=== PATIENT | male | born 1955 | race Caucasian/White ===

== ENCOUNTER → 2018-02-17 08:13 | Outpatient (CLI) | payer OTHER, SELFPAY ==
[2018-02-17 10:14] LABS: Anion Gap 7 (5-15); BUN 26 mg/dL (7-18); BUN/Creat Ratio 23.2 RATIO (10-20); Calcium,Total 9.4 mg/dL (8.5-10.1); Chloride 108 mmol/L (98-107); Cholesterol 116 mg/dL (200); Creatinine, Serum 1.12 mg/dL (0.70-1.30); EST Glomerular Filtration Rate 70 mL/min (>60); Est Glom Filt Rate - Afr Amer 85 mL/min (>60); Glucose 74 mg/dL (74-106); High Density Lipoprotein 40 mg/dL; Potassium 3.8 mmol/L (3.5-5.1); Sodium Level 141 mmol/L (136-145); Thyroid Stim Hormone (TSH) 2.45 uIU/mL (0.358-3.74); Triglycerides 93 mg/dL; Very Low Density Lipoprotein 19 mg/dL (5-40); Vitamin D,25 Hydroxy 22.5 ng/mL (29.95-100.01)
== END ==
PROVIDERS: Family Provider Family Medicine; PCP Family Medicine; Referring Provider Family Medicine; Visit Provider Family Medicine
DX: Z00.00 Encounter for general adult medical examination without abnormal findings (principal)
CPT/HCPCS: 36415; 80048; 80061; 82306; 84153; 84443; G0103

== ENCOUNTER 2018-06-05 08:07 | Day surgery (SDC) | payer SELFPAY ==
[2018-06-05] VITALS (7 sets, daily range): BP systolic 104–137; BP diastolic 74–97; PULSE 57–63; RESP 14–16; TEMP 36.1–36.6; O2SAT 97–100; BMI 26.9
--- NOTE | 2018-06-05 08:42 | H&P.OPEN ---
History of Present Illness Date of Admission: 06/05/18 The patient is a 63 year old M patient here for surveillance colonoscopy. Patient's last colonoscopy was 5 years ago. He would like close surveillance. He had nothing on his last colonoscopy. He denies any abdominal pain or blood in his stool. He has no family history of colon cancer. Past Medical/Surgical History - Planned Operation Planned Operative Procedure/s: cscope open access Date of Operative Procedure: 05/22/18 Permit Signed: No S.O.S: No Is This Patient Having a Total Joint: No - Previous Hospitalizations/Surgeries HX Hospitalizations: No HX of Surgeries: left tkr. colonoscopy. heart cath 4 yrs ago. carpal tunnel left Any Problems With Anesthesia: No You/Your Family Experience Fever (Hyperthermia) With Anes: No Cholinesterase deficiency: No - Cardiovascular Hx Chest Pain within Last 2 months: No Hx of Irregular Heartbeat and/or Afib: No - cardiomyopathy/follows with dr tirado 05/2018 Hx Heart Attack: No Hx Congestive Heart Failure: No Hx Rheumatic Fever: No Hx Hypertension: Yes - controlled with med Hx Internal Defibrillator: No Hx Pacemaker: No Hx Cardiac Catheterization: Yes - 2014 What facility was last heart cath performed: [facility] Date of last Heart Cath: 2014 Hx Cardiac Surgery/Stents/Etc.: No Hx Stress Test: Yes - 2014 [facility] HX Edema: No Hx Pain in Legs when Walking/Leg Cramps: No - Respiratory Chronic Cough: No HX of Shortness of Breath: No Hoarseness: No Hx Chronic Obstructive Pulmonary Disease (COPD): No Hx Asthma: No Hx Emphysema: No Hx Sleep Apnea: No Hx Oxygen Use at Home: No Hx Respiratory Tract Infection/Cold (presently): No Do You Snore Loudly (louder than talking or can be heard): No Do You Often Feel Tired/ Fatigued/ Sleepy Dring Daytime?: No Has Anyone Observed You Stop Breathing During Sleep?: No Result (for STOP score): Negative Hx Smoking: No Smoking Status: Never smoker - Gastrointestinal Hx Gastroesophageal Reflux: Yes Controlled With Meds: Yes Hx Gastrointestinal Disorders: No Hx Gastrointestinal Bleed: No Hx Ulcer: No Hx Hiatal Hernia: No Difficulty Chewing/Swallowing: No Recent Onset of Swallowing Problems: No Special diet followed at home: No Hx Unplanned Weight Loss of 20#: No HX Unplanned Weight Gain of 20#: No - Neurological Hx Seizures: No HX Syncope/Blackout Spells/Unconsciousness: No Hx CVA/Stroke: No Hx Transient Ischemic Attacks (TIA): No Hx Multiple Sclerosis: No Hx Parkinson's Disease: No Hx Head/Neck Injury: No Hx Headaches: No Hx Back Injury/Pain: No Recent Onset of Speech Difficulty: No Restless Legs: No Does patient have nerve stimulator: No Patient instructed to have device shut off: No Rep notified?: No - Blood Disorder Hx Leukemia: No Bleeding Tendencies: No Hx Deep Vein Thrombosis: No Hx High Cholesterol: Yes - on med Blood Transmitted Disease: No Hx Hepatitis: No Hx Cirrhosis: No Hx Anemia: No Hx Blood Disorders: No - Genitourinary Hx Renal Disease: No - Musculoskeletal Hx Arthritis: Yes Hx Rheumatoid Arthritis: No Hx Gout: No Recent Onset of an Orthopedic Problem: No - Endocrine Hx Diabetes: No Thyroid Disease: No Hx Steroid Therapy: No - Psycho/Social Hx Substance Use: No Hx Alcohol Use: No Hx Anxiety: No Hx Depression: No Mental Illness: No Hx Dementia: No - Miscellaneous Hx Cancer: No Recent Exposure to Contagious Disease: No Active MRSA: No Hx of C-Diff: No Any Loose Teeth: No Allergies No Known Allergies Allergy (Verified 05/18/18 11:57) - Discharge Is Pt Admitted From a [facility], or a Retirement: No Who Could Help: family After D/C, Where Do you Plan to Go: Return Home - From the PAT History Number of Risk Factors: 1 - Physical Exam General: Alert, Oriented x3 Lungs: Normal air movement Cardiovascular: Regular rate, Regular Rhythm Abdomen: Soft, Non Tender, Non-Distended Vital Signs Temp Pulse Resp BP Pulse Ox 98 F 57 L 16 137/77 H 100 06/05/18 08:34 06/05/18 08:34 06/05/18 08:34 06/05/18 08:34 06/05/18 08:34 Oxygen Delivery Method Room Air Weight: 166 lb 10.711 oz Body Mass Index (BMI) 26.9 Assessment/Plan 63-year-old male for screening colonoscopy I explained endoscopy in detail to the patient. I explained the risks including but not limited to stroke or heart attack with anesthesia, perforation of the GI tract, bleeding, infection. I explained that any of these could necessitate further emergency surgery. The patient understands and all questions were answered sufficiently. The patient wishes to proceed with procedure. Aldo Craig MD Pager: [facility] [address] [place] [address] [address] [place] [address] Office: Surgery Risks - Colonoscopy Risks Include but are not Limited To: Risks include but are not limited to: Bleeding, perforation requiring further surgery, inability to complete colonoscopy requiring barium enema.
--- NOTE | 2018-06-05 09:41 | OP.ENDO_ITS ---
Patient Name: Derrick Gutierrez Procedure Date: 06/05/2018 9:13 AM Date of : 1955 Age: 63 Procedure: Colonoscopy Indications: Screening for colorectal malignant neoplasm Providers: Aldo Craig MD Referring MD: Aldo Craig MD Medicines: Monitored Anesthesia Care Patient Profile: This is a 63 year old male. Refer to note in patient chart for documentation of history and physical. Last Colonoscopy: 5 years ago. Complications: No immediate complications. Estimated blood loss: None. Procedure: Pre-Anesthesia Assessment: - Prior to the procedure, a History and Physical was performed, and patient medications and allergies were reviewed. The patient's tolerance of previous anesthesia was also reviewed. The risks and benefits of the procedure and the sedation options and risks were discussed with the patient. All questions were answered, and informed consent was obtained. Prior Anticoagulants: The patient has taken no previous anticoagulant or antiplatelet agents. After reviewing the risks and benefits, the patient was deemed in satisfactory condition to undergo the procedure. After I obtained informed consent, the scope was passed under direct vision. Throughout the procedure, the patient's blood pressure, pulse, and oxygen saturations were monitored continuously. The Colonoscope was introduced through the anus and advanced to the cecum, identified by appendiceal orifice and ileocecal valve. The colonoscopy was performed without difficulty. The patient tolerated the procedure well. The quality of the bowel preparation was good. Scope In: 9:24:17 AM Scope Withdrawal Time 0 hours 6 minutes 11 seconds Scope Out: 9:34:51 AM Total Procedure Duration Time 0 hours 10 minutes 34 seconds Findings: The entire examined colon appeared normal on direct and retroflexion views. Impression: - The entire examined colon is normal on direct and retroflexion views. - No specimens collected. Recommendation: - Discharge patient to home. - Resume previous diet. - Continue present medications. - Repeat colonoscopy in 10 years for screening purposes. Procedure Code(s): --- Professional --- 39960, PT, Colonoscopy, flexible; diagnostic, including collection of specimen(s) by brushing or washing, when performed (separate procedure) Diagnosis Code(s): --- Professional --- Z12.11, Encounter for screening for malignant neoplasm of colon CPT copyright 2017 [employer]. All rights reserved. The codes documented in this report are preliminary and upon science tutor review may be revised to meet current compliance requirements. Aldo Craig MD 06/05/2018 9:40:45 AM This report has been signed electronically. Number of Addenda: 0 Note Initiated On: 06/05/2018 9:13 AM
== END 2018-06-05 10:22 | disposition home or self-care (01) ==
LOC: EN 08:08 → AC 08:09
PROVIDERS: Family Provider Family Medicine; PCP Family Medicine; Referring Provider Surgery; Visit Provider Surgery
PROC: 0DJD8ZZ Inspection of Lower Intestinal Tract, Via Natural or Artificial Opening Endoscopic (ICD-10-PCS; CPT 45378; principal; 2018-06-05 09:25)
DX: Z12.11 Encounter for screening for malignant neoplasm of colon (principal); K21.9 Gastro-esophageal reflux disease without esophagitis; I10 Essential (primary) hypertension
CPT/HCPCS: 45378; J7120; J2405

== ENCOUNTER → 2019-03-24 14:48 | Outpatient (CLI) | payer SELFPAY, OTHER ==
[2019-03-04 15:50] VITALS: BMI 27.7
--- NOTE | 2019-03-24 14:51 | ECHOCS_ITS ---
Reason For Study: CARDIOMYOPATHY, R/O LV THROMBUS Procedure This was a 2D Doppler, Color Flow transthoracic echocardiogram. Contrast injection was performed. Due to history of previous LV thrombus. Exam performed in department. Left Ventricle Normal LV size. Left ventricular systolic function is lower limits of normal. The estimated ejection fraction is 50 %. No evidence for diastolic dysfunction. No regional wall motion abnormalities noted. Right Ventricle Normal RV size. Normal systolic function. Atria The left atrium is mildly enlarged. Normal right atrium. No doppler evidence for ASD. Mitral Valve There is no mitral annular calcification. Equivocal mitral valve prolapse. Mild (1+) mitral valve insufficiency. Tricuspid Valve Normal tricuspid valve. Mild tricuspid valve insufficiency. Right ventricular systolic pressure estimated to be 26 mmHg. Aortic Valve Trisinus/trileaflet aortic valve. Mild focal aortic valve calcification. Pulmonic Valve The pulmonic valve is not well visualized. Trivial pulmonic valve insufficiency. Great Vessels Normal sized aortic root. Pericardium/Pleural No pericardial effusion. Medication 22 gauge I.V. with prn adaptor inserted into right arm. Diluted definity 2.5ml given slow IV push to enhance endocardial definition. MMode/2D Measurements & Calculations LVIDd: 5.6 cm IVSd: 0.90 cm Ao root diam: 3.1 cm LVIDs: 4.1 cm LVPWd: 0.93 cm RVDd: 4.1 cm FS: 25.9 % LAV(MOD-bp): 59.1 ml LA A4 area: 19.7 cm2 LA dimension(2D): 3.4 cm LAV(MOD-bp) Indexed: 31.5 ml/m2 LAV(MOD-sp2): 59.8 ml LAV(MOD-sp4): 53.2 ml RA A4 area: 17.1 cm2 Time Measurements MV dec time: 0.20 sec Doppler Measurements & Calculations MV E max richy: 64.4 cm/sec Lat Peak E' Richy: 6.4 cm/sec Med Peak E' Richy: 4.9 cm/sec MV A max richy: 77.5 cm/sec E/E' lat: 10.1 E/E' med: 13.1 MV E/A: 0.83 Ao V2 max: 108.0 cm/sec LV V1 max: 78.9 cm/sec PA V2 max: 91.8 cm/sec Ao max P.7 mmHg LV V1 max P.5 mmHg TR max richy: 237.3 cm/sec TR max P.6 mmHg Interpretation Summary Contrast injection was performed. Left ventricular systolic function is lower limits of normal. The estimated ejection fraction is 50 %. The left atrium is mildly enlarged. Equivocal mitral valve prolapse. Mild (1+) mitral valve insufficiency. Mild tricuspid valve insufficiency. Mild focal aortic valve calcification. Trivial pulmonic valve insufficiency. Right ventricular systolic pressure estimated to be 26 mmHg. No evidence for diastolic dysfunction. Based upon the 2D echocardiographic and contrast enhanced images obtained a left ventricular apical thrombus is not appreciated at this time. Ordering Physician: Rick Bundy Referring Physician: Rick Light Performed By: Mraitza Cotto, NORMA, RVT
== END ==
PROVIDERS: Family Provider Family Medicine; PCP Family Medicine; Referring Provider Internal Medicine Cardiovascular Disease; Visit Provider Internal Medicine Cardiovascular Disease
DX: I50.22 Chronic systolic (congestive) heart failure (principal); I42.8 Other cardiomyopathies
CPT/HCPCS: 93306; Q9957; A4216; C8929

== ENCOUNTER → 2020-05-31 09:28 | Outpatient (CLI) | payer SELFPAY ==
[2019-09-09 15:26] VITALS: BMI 27.7
[2020-05-31 11:14] LABS: AST(SGOT) 23 U/L (15-37); Alanine Aminotransfer ALT/SGPT 41 U/L (16-61); Albumin, Serum 3.8 g/dL (3.2-5.0); Alkaline Phosphatase 90 U/L (45-117); Bilirubin, Direct 0.08 mg/dL (0.00-0.30); Cholesterol 169 mg/dL (200); Globulin 3.9 g/dL (2.2-4.2); High Density Lipoprotein 48 mg/dL; Protein, Total 7.7 g/dL (6.4-8.2); Triglycerides 137 mg/dL; Very Low Density Lipoprotein 27 mg/dL (5-40)
== END ==
PROVIDERS: PCP Family Medicine; Referring Provider Nurse Practitioner Family; Visit Provider Nurse Practitioner Family
DX: E78.2 Mixed hyperlipidemia (principal); I42.8 Other cardiomyopathies
CPT/HCPCS: 36415; 80061; 80076

== ENCOUNTER → 2020-06-15 13:51 | Outpatient (CLI) | payer SELFPAY ==
[2020-05-31 10:16] VITALS: BMI 27.3
--- NOTE | 2020-06-15 13:57 | ECHOD_ITS ---
Reason For Study: CARDIOMYOPATHY Procedure This was a 2D Doppler, Color Flow transthoracic echocardiogram. The exam was of adequate technical quality. Exam performed in department. Left Ventricle Normal LV size. Left ventricular systolic function is lower limits of normal. The estimated ejection fraction is 50 %. The global longitudinal strain = -17% (borderline). No evidence for diastolic dysfunction. Right Ventricle Normal RV size. Normal systolic function. Atria Borderline enlarged left atrium. Normal right atrium. No doppler evidence for ASD. Mitral Valve There is no mitral annular calcification. Anterior leaflet diffuse mitral valve thickening. Equivocal mitral valve prolapse. Mild (1+) mitral valve insufficiency. Tricuspid Valve Normal tricuspid valve. Trivial tricuspid valve insufficiency. Right ventricular systolic pressure estimated to be 32 mmHg. Aortic Valve Trisinus/trileaflet aortic valve. Normal aortic valve. Pulmonic Valve The pulmonic valve is not well visualized. Trivial pulmonic valve insufficiency. Great Vessels Borderline to mildly enlarged aortic root. Pericardium/Pleural No pericardial effusion. MMode/2D Measurements & Calculations LVIDd: 5.5 cm IVSd: 0.86 cm Ao root diam: 4.0 cm LVIDs: 4.1 cm LVPWd: 0.88 cm RVDd: 3.2 cm FS: 25.1 % LAV(MOD-bp): 47.6 ml LA A4 area: 18.8 cm2 LA dimension(2D): 3.9 cm LAV(MOD-bp) Indexed: 25.6 ml/m2 LAV(MOD-sp2): 43.3 ml LAV(MOD-sp4): 49.2 ml RA A4 area: 13.5 cm2 Time Measurements MV dec time: 0.23 sec Doppler Measurements & Calculations MV E max richy: 49.1 cm/sec Lat Peak E' Richy: 5.6 cm/sec Med Peak E' Richy: 3.8 cm/sec MV A max richy: 67.2 cm/sec E/E' lat: 8.7 E/E' med: 12.9 MV E/A: 0.73 Ao V2 max: 118.9 cm/sec LV V1 max: 86.3 cm/sec PA V2 max: 111.5 cm/sec Ao max P.7 mmHg LV V1 max P.0 mmHg PI end-d richy: 71.4 cm/sec TR max richy: 269.2 cm/sec TR max P.0 mmHg Interpretation Summary Left ventricular systolic function is lower limits of normal. The estimated ejection fraction is 50 %. The global longitudinal strain = -17% (borderline). Borderline enlarged left atrium. Anterior leaflet diffuse mitral valve thickening. Equivocal mitral valve prolapse. Mild (1+) mitral valve insufficiency. Trivial tricuspid valve insufficiency. Trivial pulmonic valve insufficiency. Borderline to mildly enlarged aortic root. Right ventricular systolic pressure estimated to be 32 mmHg. No evidence for diastolic dysfunction. Ordering Physician: Rick Bundy Referring Physician: RICK BRAUN Performed By: Sparkle Emmanuel, RDCS, RVT
== END ==
PROVIDERS: PCP Family Medicine; Referring Provider Internal Medicine Cardiovascular Disease; Visit Provider Internal Medicine Cardiovascular Disease
DX: I42.8 Other cardiomyopathies (principal); I50.22 Chronic systolic (congestive) heart failure; E78.2 Mixed hyperlipidemia
CPT/HCPCS: 93306

== ENCOUNTER 2020-08-31 14:17 | Emergency (ER) | payer OTHER, SELFPAY ==
[2020-05-31 10:16] VITALS: BMI 27.3
[2020-08-31 14:18] VITALS: BP 125/86; PULSE 110; RESP 20; TEMP 37; O2SAT 93; BMI 27.1
--- NOTE | 2020-08-31 16:27 | EKG12_ITS ---
Test Reason : SOB Blood Pressure : / mmHG Vent. Rate : 079 BPM Atrial Rate : 079 BPM P-R Int : 160 ms QRS Dur : 088 ms QT Int : 388 ms P-R-T Axes : 013 -23 021 degrees QTc Int : 444 ms Normal sinus rhythm Poor R wave progression Confirmed by JENN PEÑA, LAURIE ([id number]), acquisition editor PIERRE BRICENO ([id number]) on 09/04/2020 12:22:53 PM Referred By: GILBERT Confirmed By:LAURIE BARAJAS MD
--- NOTE | 2020-08-31 16:29 | EDS_ITS ---
HPI History of Present Illness Chief Complaint: General Illness Narrative Narrative: Patient presents with generalized illness for the past few days, he has generalized weakness decreased p.o. intake cough and congestion he had subjective fevers. He has no chest pain. He has no difficulty breathing. He is denying any abdominal pain. He has no dysuria or hematuria. No flank pain. He has no focal weakness, he has no neck pain or stiffness he has no rash. Past medical history: Hypertension, hypercholesterolemia Medications: Reviewed Social history: Noncontributory Review of systems: All systems negative except as indicated General: Subjective fevers as in HPI. Generalized weakness Eyes: No visual changes ENT: No upper airway congestion, normal voice Neck: No neck pain Cardiovascular: No chest pain Respiratory: No shortness of breath. He does have a cough but it is not productive Gastrointestinal: No abdominal pain, nausea vomiting or diarrhea. Decreased p.o. intake Genitourinary: No dysuria Musculoskeletal: Some generalized myalgias, however no difficulty with ambulation. Skin: No rash Neurological: No memory loss, confusion or any focal weakness Psych: No recent behavioral changes Hematologic: No easy bleeding or easy bruising [facility] Medical History (Updated 08/31/20 @ 18:[address] Rick Proctor MD) Chronic systolic (congestive) heart failure Mixed hyperlipidemia Nonischemic cardiomyopathy Home Medications omeprazole magnesium 10 mg PO DAILY 05/18/18 [History Last Taken Unknown] melatonin 5 mg tablet 10 mg PO HS tab 03/03/19 [History Last Taken Unknown] atorvastatin 20 mg tablet 10 mg PO QHS #90 tab 03/04/19 [Rx Last Taken Unknown] cholesterol control, high and low solution #1 ea 03/04/19 [History Last Taken Unknown] mecobalamin (vitamin B12) 5,000 mcg disintegrating tablet 1 mcg PO DAILY tab 03/04/19 [History Last Taken Unknown] carvedilol 6.25 mg tablet 6.25 mg PO BID #180 tab 02/18/20 [Rx Last Taken Unknown] losartan 25 mg tablet 50 mg PO DAILY #90 tab 06/16/20 [Rx Last Taken Unknown] Allergy/AdvReac Type Severity Reaction Status Date / Time No Known Allergies Allergy Verified 08/31/20 14:21 Surgical History History of left heart catheterization (LHC) (~04/20/13) Social History (Updated 05/31/20 @ 10:[address] Rick Bundy MD) Smoking Status: Never smoker alcohol intake: never substance use type: does not use caffeine: Yes Type: coffee Number of servings: 1 EXAM Physical Exam Narrative Exam Narrative: Physical exam General: This is a well-appearing male he is laying comfortably in bed. Head: Normocephalic, Atraumatic Eyes: Conjunctiva not pale ENT: Slightly dry mucous membranes Neck: Supple, Nontender, No lymphadenopathy Cardiovascular: Regular rate, Regular rhythm Respiratory: No distress, CTA bilaterally Abdomen: Soft, Nontender, Nondistended Back: Nontender, Normal Inspection. Negative for: CVA tenderness Extremities: Nontender, No edema Skin: Normal color, No rash Neurological: Alert, Normal Strength, Normal Sensation Psychological: Normal affect Const Vital Signs: 08/31/20 14:18 08/31/20 16:05 08/31/20 16:43 Temperature 98.6 F Temperature Source Temporal Pulse Rate 110 H 83 Respiratory Rate 20 H 24 H Respiratory Effort Normal Non-Labored Respiratory Pattern Normal Blood Pressure 125/86 H 118/81 H Blood Pressure Mean 99 93 Pulse Ox 93 98 Oxygen Delivery Method Room Air Room Air 08/31/20 18:00 Temperature Temperature Source Pulse Rate 84 Respiratory Rate 21 H Respiratory Effort Respiratory Pattern Blood Pressure 112/78 Blood Pressure Mean 89 Pulse Ox 98 Oxygen Delivery Method Room Air MDM MDM MDM Narrative Medical decision making narrative: Patient has an unremarkable work-up other than the fact that he is positive for Covid. He is not hypoxic he appears well I believe he is stable for discharge but I talked to him and his , if he worsens he needs to return. He understands this. Lab Data Labs: Laboratory Results - last 24 hr 08/31/20 08/31/20 16:40 16:40 WBC 4.9 RBC 4.13 L Hgb 14.0 Hct 39.3 L MCV 95.2 H MCH 33.9 H MCHC 35.6 RDW Std Deviation 42.7 RDW Coeff of Joel 12.2 Plt Count 111 L MPV 8.7 Immature Gran % (Auto) 0.600 Neut % (Auto) 65.4 Lymph % (Auto) 16.3 L [place] % (Auto) 17.3 H Eos % (Auto) 0.0 Baso % (Auto) 0.4 Absolute Neuts (auto) 3.2 Absolute Lymphs (auto) 0.79 L Nucleated RBC % 0 Sodium 133 L Potassium 3.6 Chloride 101 Carbon Dioxide 25.0 Anion Gap 7 BUN 20 H Creatinine 1.37 H Estim Creat Clear Calc 48.51 Est GFR (MDRD) Af Amer 67 Est GFR (MDRD) Non-Af 55 L BUN/Creatinine Ratio 14.6 Glucose 111 H Calcium 9.5 Total Bilirubin 0.50 AST 28 ALT 56 Alkaline Phosphatase 71 Troponin I < 0.015 Total Protein 7.3 Albumin 3.3 Globulin 4.0 Albumin/Globulin Ratio 0.8 L Radiography Chest X-Ray - ED: 1 View, Read by ED Physician and Normal Diagnostic Testing: Radiology Impression Chest X-Ray 08/31/20 16:55 IMPRESSION: Normal x-ray examination of the chest. Electronically Signed: Jimi Dunne MD at 17:07 EDT Tel , Service support , No pneumonia seen. Discharge Plan Triage Chief Complaint: General Illness ED Provider: Rick Proctor Dx/Rx/DC Orders Clinical Impression: COVID-19 Instructions: Coronavirus Disease 2019 (COVID-19): Overview Prescriptions: No Action mecobalamin (vitamin B12) 5,000 mcg disintegrating tablet 5,000 mcg tablet,disintegrating 1 mcg PO DAILY RF: 0 (DME) cholesterol control, high and low solution solution See Rx Instructions .ROUTE .MEDSUPPLY Qty: 1 RF: 0 atorvastatin 20 mg tablet 10 mg PO QHS Qty: 90 RF: 3 melatonin 5 mg tablet 10 mg PO HS RF: 0 omeprazole magnesium 20 MG tablet,delayed release (DR/EC) 10 mg PO DAILY RF: 0 carvedilol 6.25 mg tablet 6.25 mg PO BID Qty: 180 RF: 3 losartan 25 mg tablet 50 mg PO DAILY Qty: 90 RF: 3 Primary Care Provider: Rick Light Referrals: Rick Light MD [Primary Care Provider] - 2 Days Disposition Disposition: Home, self care
[2020-08-31 16:43] VITALS: BP 118/81; PULSE 83; RESP 24; O2SAT 98
[2020-08-31] MEDS: 0.9% Normal Saline 1,000 ML 999 ML IV (16:47)
[2020-08-31 16:50] LABS: Absolute Lymphocyte Count 0.79 X10^3/uL (0.83-4.51); Absolute Neutrophil Count 3.2 X10^3/uL (2.0-7.7); Basophil# 0.02 X10^3/uL; Basophil% 0.4 % (0-1); Hematocrit 39.3 % (40-54); Lymphocyte # 0.79 X10^3/ul (0.83-4.51); Lymphocyte % 16.3 % (19-41); Mean Corp Hgb Conc 35.6 g/dL (32-36); Mean Corpuscular Hgb 33.9 pg (27.0-32.0); Mean Corpuscular Volume 95.2 fL (80-94); Mean Platelet Vol. 8.7 fl (6.2-12.0); Monocyte# 0.84 X10^3/uL; Monocyte% 17.3 % (0-10); NRBC Flagged by Analyzer 0 % (0-5); Neutrophil # 3.18 X10^3/uL (2.7-7.7); Neutrophil % 65.4 % (47-70); Platelet Count 111 K/mm3 (150-450); RBC Distribution Width CV 12.2 % (11.6-14.6); RBC Distribution Width SD 42.7 fl (35.1-43.9); Red Blood Count 4.13 M/mm3 (4.6-6.2); White Blood Count 4.9 K/mm3 (4.4-11.0)
--- NOTE | 2020-08-31 16:55 | RAD_ITS ---
STUDY: X-RAY CHEST REASON FOR EXAM: Male, 65 years old. weakness TECHNIQUE: Single AP portable view of the chest. COMPARISON: None. FINDINGS: The lungs are clear and expanded. There is no demonstrated pleural abnormality. Normal size heart. Normal mediastinum and valent[place]. Normal visualized pulmonary arteries. Normal visualized aortic arch and descending thoracic aorta. Normal visualized thoracic spine. Normal visualized ribs, clavicles, and shoulders. There is no demonstrated abnormality of the visualized soft tissue structures of the upper abdomen. RAD/Chest 1 View (Portable) IMPRESSION: Normal x-ray examination of the chest. Electronically Signed: Jimi Dunne MD at 17:07 EDT Tel , Service support ,
[2020-08-31 17:09] LABS: ALB/GLOB Ratio 0.8 RATIO (0.9-2.4); AST(SGOT) 28 U/L (15-37); Alanine Aminotransfer ALT/SGPT 56 U/L (16-61); Albumin, Serum 3.3 g/dL (3.2-5.0); Alkaline Phosphatase 71 U/L (45-117); Anion Gap 7 (5-15); BUN 20 mg/dL (7-18); BUN/Creat Ratio 14.6 RATIO (10-20); Calcium,Total 9.5 mg/dL (8.5-10.1); Chloride 101 mmol/L (98-107); Creatinine, Serum 1.37 mg/dL (0.70-1.30); EST Glomerular Filtration Rate 55 mL/min (>60); Est Glom Filt Rate - Afr Amer 67 mL/min (>60); Estimated Creatinine Clearance 48.51 ml/min; Glucose 111 mg/dL (74-106); Potassium 3.6 mmol/L (3.5-5.1); Protein, Total 7.3 g/dL (6.4-8.2); Sodium Level 133 mmol/L (136-145)
[2020-08-31 18:00] VITALS: BP 112/78; PULSE 84; RESP 21; O2SAT 98
[2020-08-31] MEDS: dexAMETHasone 10 MG/ML Vial IV (18:48)
== END 2020-08-31 19:21 | disposition home or self-care (01) ==
PROVIDERS: Emergency Provider Emergency Medicine; PCP Family Medicine
DX: U07.1 COVID-19 (principal); E78.2 Mixed hyperlipidemia; I42.8 Other cardiomyopathies; I11.0 Hypertensive heart disease with heart failure; I50.22 Chronic systolic (congestive) heart failure
CPT/HCPCS: 71045; 80053; 84484; 85025; 87426; 93005; 99283; J7030; A4216

== ENCOUNTER 2020-09-03 07:19 | Emergency (ER) | payer OTHER, SELFPAY ==
[2020-09-03 07:20] VITALS: BP 113/71; PULSE 100; RESP 20; TEMP 36.3; O2SAT 92; BMI 26.7
--- NOTE | 2020-09-03 07:41 | RAD_ITS ---
STUDY: X-RAY CHEST REASON FOR EXAM: Male, 65 years old. Cough. TECHNIQUE: Single AP portable view of the chest. COMPARISON: 08/31/2020. FINDINGS: Hypoventilatory changes. Mild patchy infiltrates in the lower lungs. There is no demonstrated pleural abnormality. Normal size heart. Normal mediastinum and valentina. Normal visualized pulmonary arteries. There is atherosclerotic tortuosity of the aortic arch and descending thoracic aorta. Stable osseous structures. There is no demonstrated abnormality of the visualized soft tissue structures of the upper abdomen. RAD/Chest 1 View (Portable) IMPRESSION: Patchy bilateral infiltrates concerning for multifocal pneumonia. Electronically Signed: Jacinto Driver MD at 9:45 EDT Tel , Service support ,
[2020-09-03 07:43] VITALS: BP 113/81; PULSE 85; RESP 20; O2SAT 88
[2020-09-03] MEDS: Ondansetron 4 MG/2 ML Vial IV (07:56)
[2020-09-03] MEDS: dexAMETHasone 4 MG/ML Vial 6 MG IV (07:56)
[2020-09-03] MEDS: Morphine 4 MG/ML Syringe IV (07:56)
--- NOTE | 2020-09-03 07:58 | EX.ED.DYSGE1 ---
HPI History of Present Illness Chief Complaint: Fever Narrative Narrative: Patient reports that he has a cough that began 3 to 4 days ago. He was seen in the emergency department 3 days ago and was diagnosed with COVID-19 infection. He reports that he has had increased difficulty breathing. He reports that it is mild at rest and moderate with walking. Patient complains of a fever, chills, cold sweats. States his cough is productive of a small amount of sputum without blood. He denies any chest pain. Reports has been nauseated had a poor appetite. He denies any abdominal pain, vomiting, or diarrhea. His last bout was 3 days ago. Typically he goes daily. He has diffuse myalgias, a headache that is 5 out of 10 in severity, and generalized weakness. [facility] Medical History (Updated 09/03/20 @ 10:[address] Armando Long MD) Chronic systolic (congestive) heart failure Mixed hyperlipidemia Nonischemic cardiomyopathy Home Medications omeprazole magnesium 10 mg PO DAILY 05/18/18 [History Last Taken Unknown] melatonin 5 mg tablet 10 mg PO HS tab 03/03/19 [History Last Taken Unknown] cholesterol control, high and low solution #1 ea 03/04/19 [History Last Taken Unknown] mecobalamin (vitamin B12) 5,000 mcg disintegrating tablet 1 mcg PO DAILY tab 03/04/19 [History Last Taken Unknown] carvedilol 6.25 mg tablet 6.25 mg PO BID #180 tab 02/18/20 [Rx Last Taken Unknown] losartan 25 mg tablet 50 mg PO DAILY #90 tab 06/16/20 [Rx Last Taken Unknown] atorvastatin 20 mg tablet 10 mg PO QHS #90 tab 09/01/20 [Rx Last Taken Unknown] dexamethasone 6 mg PO DAILY #7 tab 09/03/20 [Rx Last Taken Unknown] ondansetron 4 mg PO Q8H PRN #20 tab 09/03/20 [Rx Last Taken Unknown] Allergy/AdvReac Type Severity Reaction Status Date / Time No Known Allergies Allergy Verified 09/03/20 07:19 Surgical History History of left heart catheterization (LHC) (~04/20/13) Social History Smoking Status: Never smoker alcohol intake: never substance use type: does not use caffeine: Yes Type: coffee Number of servings: 1 ROS ROS ED Constitutional Constitutional ED: Reports chills, fever(s) and sweats Eyes Eyes: Denies change in vision ENT ENT ED: Denies sore throat Cardiovascular Cardiovascular: Denies chest pain Respiratory/Chest Respiratory/Chest: Reports cough, dyspnea and dyspnea on exertion Gastrointestinal Gastrointestinal: Reports constipation and nausea; Denies abdominal pain, diarrhea, melena or vomiting Genitourinary Genitourinary ED: Denies dysuria or urinary frequency Musculoskeletal Musculoskeletal: Reports myalgias Integumentary Denies rash Neurologic Neurologic: Reports headache(s) and weakness; Denies paresthesias EXAM Physical Exam Const Vital Signs: 09/03/20 07:20 09/03/20 07:43 09/03/20 08:29 Temperature 97.4 F L Temperature Source Temporal Pulse Rate 100 85 78 Respiratory Rate 20 H 20 H 19 H Respiratory Pattern Normal Blood Pressure 113/71 113/81 H 122/76 H Blood Pressure Mean 85 91 91 Pulse Ox 92 88 96 Oxygen Delivery Method Room Air Room Air Nasal Cannula Oxygen Flow Rate (L/min) 2 09/03/20 09:30 Temperature Temperature Source Pulse Rate 75 Respiratory Rate 18 Respiratory Pattern Blood Pressure 113/76 Blood Pressure Mean 88 Pulse Ox 94 Oxygen Delivery Method Nasal Cannula Oxygen Flow Rate (L/min) 2 Positive well nourished and well developed General Appearance ED: well developed HEENT Reports normocephalic and head/scalp atraumatic Eyes PERRL Neck no lymphadenopathy, supple and no JVD General: Negative for tenderness Resp normal respiratory effort Resp Narrative: Crackles at the left base. Cardio regular rate, regular rhythm and no murmurs GI normal to inspection, nondistended, normoactive bowel sounds and non-tender GI Narrative: No guarding, rebound, or peritoneal signs. Palpation: soft Back/Spine Back/Spine Narrative: Nontender. Extremity General Extremety ED: Negative for edema or tenderness General Extremity: Negative for edema Neuro oriented x3, CN's II-XII intact bilaterally and no sensory deficits noted Sensorium / Orientation: alert Motor Exam: strength 5/5 throughout Psych mental status grossly normal Skin no rashes or lesions noted MDM [facility] Lab Data Labs: Laboratory Results - last 24 hr 09/03/20 09/03/20 09/03/20 07:55 07:55 07:55 WBC 13.1 H RBC 4.04 L Hgb 13.3 Hct 38.9 L MCV 96.3 H MCH 32.9 H MCHC 34.2 RDW Std Deviation 44.5 H RDW Coeff of Joel 12.6 Plt Count 132 L MPV 8.9 Immature Gran % (Auto) 0.800 Neut % (Auto) 87.2 H Lymph % (Auto) 5.8 L [place] % (Auto) 6.0 Eos % (Auto) 0.0 Baso % (Auto) 0.2 Absolute Neuts (auto) 11.4 H Absolute Lymphs (auto) 0.76 L Nucleated RBC % 0 D-Dimer Quant (PE/DVT) 3.95 H* Sodium 134 L Potassium 3.7 Chloride 102 Carbon Dioxide 25.0 Anion Gap 7 BUN 19 H Creatinine 1.28 Estim Creat Clear Calc 51.92 Est GFR (MDRD) Af Amer 72 Est GFR (MDRD) Non-Af 60 BUN/Creatinine Ratio 14.8 Glucose 98 Lactic Acid Calcium 9.7 Total Bilirubin 0.60 AST 48 H ALT 99 H Alkaline Phosphatase 79 Total Protein 7.1 Albumin 3.0 L Globulin 4.1 Albumin/Globulin Ratio 0.7 L 09/03/20 07:55 WBC RBC Hgb Hct MCV MCH MCHC RDW Std Deviation RDW Coeff of Joel Plt Count MPV Immature Gran % (Auto) Neut % (Auto) Lymph % (Auto) Rose[place] % (Auto) Eos % (Auto) Baso % (Auto) Absolute Neuts (auto) Absolute Lymphs (auto) Nucleated RBC % D-Dimer Quant (PE/DVT) Sodium Potassium Chloride Carbon Dioxide Anion Gap BUN Creatinine Estim Creat Clear Calc Est GFR (MDRD) Af Amer Est GFR (MDRD) Non-Af BUN/Creatinine Ratio Glucose Lactic Acid 1.0 Calcium Total Bilirubin AST ALT Alkaline Phosphatase Total Protein Albumin Globulin Albumin/Globulin Ratio Radiography Diagnostic Testing: Radiology Impression Chest X-Ray 09/03/20 07:41 IMPRESSION: Patchy bilateral infiltrates concerning for multifocal pneumonia. Electronically Signed: Jacinto Driver MD at 9:45 EDT Tel , Service support , Chest CTA 09/03/20 08:33 IMPRESSION: 1. No evidence of pulmonary embolism. 2. Patchy bilateral infiltrates concerning for multifocal pneumonia. Electronically Signed: Jacinto Driver MD at 9:51 EDT Tel , Service support , Chest x-ray was read and reviewed by myself. I do agree with the radiologist. Treatment and Re-Evaluation Comments:: Patient had an IV placed. He was given dexamethasone, morphine, and Zofran IV. He is resting more comfortably. Pulse ox on room air is 88% at rest. Treatment plan: Patient would like to go home on oxygen. His pulse ox is 95% on 2 L nasal cannula. He will be sent with a pulse oximeter. He will be discharged with dexamethasone. He is instructed to return to the emergency department if his oxygen requirement is more than 4 L or he has any worsening symptoms. Otherwise follow-up his primary care physician in 2 weeks. Disposition: To home in improved and stable condition. Discharge Plan Triage Chief Complaint: Fever ED Provider: Armando Long Dx/Rx/DC Orders Clinical Impression: COVID-19, Hypoxia Instructions: Coronavirus Disease 2019 (COVID-19): Caring for Yourself or Others Prescriptions: New ondansetron 4 mg tablet,disintegrating 4 mg PO Q8H PRN (Reason: nausea and vomiting) Qty: 20 RF: 0 dexamethasone 6 mg tablet 6 mg PO DAILY Qty: 7 RF: 0 No Action mecobalamin (vitamin B12) 5,000 mcg disintegrating tablet 5,000 mcg tablet,disintegrating 1 mcg PO DAILY RF: 0 (DME) cholesterol control, high and low solution solution See Rx Instructions .ROUTE .MEDSUPPLY Qty: 1 RF: 0 melatonin 5 mg tablet 10 mg PO HS RF: 0 omeprazole magnesium 20 MG tablet,delayed release (DR/EC) 10 mg PO DAILY RF: 0 carvedilol 6.25 mg tablet 6.25 mg PO BID Qty: 180 RF: 3 losartan 25 mg tablet 50 mg PO DAILY Qty: 90 RF: 3 atorvastatin 20 mg tablet 10 mg PO QHS Qty: 90 RF: 3 Primary Care Provider: Rick Light Referrals: Rick Light MD [Primary Care Provider] - 10-14 Days if not better
[2020-09-03 08:19] LABS: Absolute Lymphocyte Count 0.76 X10^3/uL (0.83-4.51); Absolute Neutrophil Count 11.4 X10^3/uL (2.0-7.7); Basophil# 0.02 X10^3/uL; Basophil% 0.2 % (0-1); Hematocrit 38.9 % (40-54); Hemoglobin 13.3 g/dL (13.0-16.5); Lymphocyte # 0.76 X10^3/ul (0.83-4.51); Lymphocyte % 5.8 % (19-41); Mean Corp Hgb Conc 34.2 g/dL (32-36); Mean Corpuscular Hgb 32.9 pg (27.0-32.0); Mean Corpuscular Volume 96.3 fL (80-94); Mean Platelet Vol. 8.9 fl (6.2-12.0); Monocyte# 0.78 X10^3/uL; NRBC Flagged by Analyzer 0 % (0-5); Neutrophil # 11.39 X10^3/uL (2.7-7.7); Neutrophil % 87.2 % (47-70); Platelet Count 132 K/mm3 (150-450); RBC Distribution Width CV 12.6 % (11.6-14.6); RBC Distribution Width SD 44.5 fl (35.1-43.9); Red Blood Count 4.04 M/mm3 (4.6-6.2); White Blood Count 13.1 K/mm3 (4.4-11.0)
[2020-09-03 08:29] VITALS: BP 122/76; PULSE 78; RESP 19; O2SAT 96
[2020-09-03 08:31] LABS: D-Dimer Quantitative (DVT/PE) 3.95 FEU/ug/m (0.27-0.49)
--- NOTE | 2020-09-03 08:33 | CT_ITS ---
EXAM: CT ANGIOGRAPHY CHEST WITHOUT AND WITH INTRAVENOUS CONTRAST CLINICAL INDICATION: Cough, concern for pulmonary embolism. TECHNIQUE: Helically acquired angiography images were obtained of the chest without and with intravenous contrast. This CT exam was performed using one or more of the following dose reduction techniques: automated exposure control, adjustment of the mA and/or kV according to patient size, and/or use of iterative reconstruction technique. This report was created using [employer] report generation technology. MIP reconstructed images were created and reviewed. CONTRAST: IV 75mL [id number] COMPARISON: None. FINDINGS: PULMONARY ARTERIES: Unremarkable. Normal in caliber. No evidence of pulmonary embolism. AORTA: Mild tortuosity of the thoracic aorta. Normal in caliber. No evidence of dissection. GREAT VESSELS OF AORTIC ARCH: Unremarkable. Normal in caliber. No evidence of dissection. LUNGS AND PLEURAL SPACES: Patchy bilateral infiltrates concerning for multifocal pneumonia. No mass. No pleural effusion or thickening. HEART: Unremarkable. Heart size is normal. No pericardial effusion. No signs of right heart strain. MEDIASTINUM: Unremarkable. No mediastinal or hilar adenopathy. Esophagus is unremarkable. No hiatal hernia. THYROID: Unremarkable. No thyroid lesions. BONES/JOINTS: Degenerative changes in the lower thoracic spine. No suspicious lytic or blastic abnormality. KIDNEYS AND URETERS: Partially visualized cyst in the upper pole of the right kidney. CT/CTA Chest W/WO Contrast IMPRESSION: 1. No evidence of pulmonary embolism. 2. Patchy bilateral infiltrates concerning for multifocal pneumonia. Electronically Signed: Jacinto Driver MD at 9:51 EDT Tel , Service support ,
[2020-09-03 08:36] LABS: ALB/GLOB Ratio 0.7 RATIO (0.9-2.4); AST(SGOT) 48 U/L (15-37); Alanine Aminotransfer ALT/SGPT 99 U/L (16-61); Alkaline Phosphatase 79 U/L (45-117); Anion Gap 7 (5-15); BUN 19 mg/dL (7-18); BUN/Creat Ratio 14.8 RATIO (10-20); Calcium,Total 9.7 mg/dL (8.5-10.1); Chloride 102 mmol/L (98-107); Creatinine, Serum 1.28 mg/dL (0.70-1.30); EST Glomerular Filtration Rate 60 mL/min (>60); Est Glom Filt Rate - Afr Amer 72 mL/min (>60); Estimated Creatinine Clearance 51.92 ml/min; Globulin 4.1 g/dL (2.2-4.2); Glucose 98 mg/dL (74-106); Potassium 3.7 mmol/L (3.5-5.1); Protein, Total 7.1 g/dL (6.4-8.2); Sodium Level 134 mmol/L (136-145)
[2020-09-03 09:30] VITALS: BP 113/76; PULSE 75; RESP 18; O2SAT 94
[2020-09-03 10:10] VITALS: O2SAT 88
[2020-09-03 11:33] VITALS: BP 117/82; PULSE 76; RESP 20; O2SAT 95
--- NOTE | 2020-09-03 11:48 | ED.RN ---
THIS NURSE REVIEWED D/C INSTRUCTIONS WITH PT AND . BOTH VERBALIZED UNDERSTANDING OF INSTRUCTIONS. IV D/C. IV CATHETER INTACT. PT TOLERATED WELL. PT DENIES FURTHER NEEDS OR QUESTIONS AT THIS TIME. PT AMBULATES FROM ROOM ON OWN WITHOUT ASSISTANCE FROM STAFF
--- NOTE | 2020-09-04 12:52 | CASEMGMT ---
Per ED, pt is COVID + and was sent home from ED on 2L continuous home oxygen on 09/03/20. Call to pt and he states he is 'doing pretty good' and 'I think I have turned the corner. Pt states he has a pulse ox at home and states sats have been about 93% on 2L. Pt encouraged to make f/u PCP appt, voices understanding. Pt again states 'I feel a lot better.' Pt voices no further questions/concerns/needs. Pt aware that CM will f/u with him for the next few days, voices understanding and thanks this CURTIS GASCA. Jackie ACEVEDO CM
--- NOTE | 2020-09-05 15:27 | CASEMGMT ---
Day 2 F/U COVID call for ED pt sent home on oxygen. Pt states is 'feeling better' and states is 'eating better' as well. Pt still c/o cough but states sats have been 93% on 2L. Pt states has not made f/u appt with PCP yet and asks 'if that's a must?' This RN CM encouraged pt to make f/u appt, voices understanding. Pt voices no further questions/concerns/needs. SStaten RN CM
--- NOTE | 2020-09-06 13:04 | CASEMGMT ---
CURTIS GASCA NOTE: Day 3 F/U COVID call for ED pt sent home on oxygen. Pt states he is really improving. Pt still c/o slight cough but states I've got that pretty well under control. He reports good appetite and stated, I can eat again. My headache is gone. Praise the Lord. He states he has been on RA today and pulse ox has been around 90%. 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 I'm self employed. Pt states he was just getting ready to call Dr Singleton's office for appt, but they are out for lunch so he plans to call them in a little while. He denies needs or concerns. Marcie POLLARD RN, CM
--- NOTE | 2020-09-07 13:14 | CASEMGMT ---
Day 4 F/U COVID call for ED pt sent home on oxygen. Attempted to reach pt without success, message left for pt to call this RN CM back if/when able. SStaten RN CM
--- NOTE | 2020-09-08 13:21 | CASEMGMT ---
Day 5 F/U COVID call for ED pt sent home on oxygen. Attempted to reach pt without success, message left for pt to call this RN CM back. SStaten CURTIS GASCA
== END 2020-09-03 11:49 | disposition home or self-care (01) ==
LOC: ED 08:25
PROVIDERS: Emergency Provider Emergency Medicine; PCP Family Medicine
DX: U07.1 COVID-19 (principal); R09.02 Hypoxemia; I50.22 Chronic systolic (congestive) heart failure; E78.2 Mixed hyperlipidemia; Z79.52 Long term (current) use of systemic steroids
CPT/HCPCS: 71045; 71275; 80053; 83605; 85025; 85379; 96374; 96375; 99284; Q9967; A4216; J2405

== ENCOUNTER 2021-06-28 10:32 | Outpatient (CLI) | payer SELFPAY ==
--- NOTE | 2021-06-28 10:35 | ECHOD_ITS ---
Reason For Study: SYNCOPE/NEAR SYNCOPE Procedure This was a 2D Doppler, Color Flow transthoracic echocardiogram. The exam was of adequate technical quality. Exam performed in department. Left Ventricle Mildly dilated left ventricle. Mild global left ventricular systolic dysfunction. The estimated ejection fraction is 50 %. The global longitudinal strain = -16% (borderline). No evidence for diastolic dysfunction. Right Ventricle Normal RV size. Normal systolic function. Atria Normal left atrium. Normal right atrium. No doppler evidence for ASD. Mitral Valve There is no mitral annular calcification. Equivocal mitral valve prolapse. Mild (1+) mitral valve insufficiency. Tricuspid Valve Normal tricuspid valve. Trivial tricuspid valve insufficiency. Right ventricular systolic pressure estimated to be 23 mmHg. Aortic Valve Trisinus/trileaflet aortic valve. Mild focal aortic valve calcification. Pulmonic Valve The pulmonic valve is not well visualized. Trivial pulmonic valve insufficiency. Great Vessels Normal sized aortic root. Pericardium/Pleural No pericardial effusion. MMode/2D Measurements & Calculations LVIDd: 5.7 cm IVSd: 0.85 cm Ao root diam: 3.4 cm LVIDs: 4.3 cm LVPWd: 0.86 cm RVDd: 3.3 cm FS: 23.4 % LAV(MOD-bp): 43.6 ml LVAd ap4: 34.4 cm2 LVAd ap2: 32.1 cm2 LAV(MOD-bp) Indexed: 23.4 ml/m2 LVLd ap4: 8.6 cm LVLd ap2: 8.0 cm LAV(MOD-sp2): 41.0 ml EDV(MOD-sp4): 116.0 ml EDV(MOD-sp2): 110.2 ml LAV(MOD-sp4): 41.7 ml EDV(sp4-el): 116.6 ml EDV(sp2-el): 108.9 ml LVAs ap4: 23.2 cm2 LVAs ap2: 22.6 cm2 LVLs ap4: 7.1 cm LVLs ap2: 7.6 cm ESV(MOD-sp4): 65.8 ml ESV(MOD-sp2): 61.4 ml ESV(sp4-el): 64.7 ml ESV(sp2-el): 57.1 ml EF(MOD-sp4): 43.3 % EF(MOD-sp2): 44.3 % EF(sp4-el): 44.5 % SV(MOD-sp4): 50.2 ml SV(MOD-sp2): 48.9 ml SV(sp4-el): 51.9 ml LA dimension(2D): 3.5 cm LA A4 area: 15.7 cm2 RA A4 area: 13.7 cm2 Time Measurements MV dec time: 0.16 sec Doppler Measurements & Calculations MV E max richy: 62.1 cm/sec Lat Peak E' Richy: 6.4 cm/sec Med Peak E' Richy: 5.3 cm/sec MV A max richy: 75.6 cm/sec E/E' lat: 9.7 E/E' med: 11.7 MV E/A: 0.82 Ao V2 max: 116.0 cm/sec LV V1 max: 65.7 cm/sec PA V2 max: 99.4 cm/sec Ao max P.4 mmHg LV V1 max P.7 mmHg TR max richy: 223.8 cm/sec TR max P.0 mmHg ECHO/Echo Complete Interpretation Summary Mildly dilated left ventricle. Mild global left ventricular systolic dysfunction. The estimated ejection fraction is 50 %. The global longitudinal strain = -16% (borderline). Equivocal mitral valve prolapse. Mild (1+) mitral valve insufficiency. Trivial tricuspid valve insufficiency. Mild focal aortic valve calcification. Trivial pulmonic valve insufficiency. Right ventricular systolic pressure estimated to be 23 mmHg. No evidence for diastolic dysfunction. Ordering Physician: Rick Bundy Referring Physician: Rick Light Performed By: Maritza Cotto, RDCS, RVT
== END 2021-06-28 23:59 | disposition home or self-care (01) ==
LOC: CVS 10:35
PROVIDERS: PCP Family Medicine; Referring Provider Internal Medicine Cardiovascular Disease; Visit Provider Internal Medicine Cardiovascular Disease
DX: R55 Syncope and collapse (principal); I50.22 Chronic systolic (congestive) heart failure; I42.8 Other cardiomyopathies; E78.2 Mixed hyperlipidemia
CPT/HCPCS: 93306

== ENCOUNTER → 2022-06-05 | Outpatient (CLI) | payer SELFPAY ==
[2022-06-05 10:14] LABS: Anion Gap 6 (5-15); BUN 24 mg/dL (7-18); BUN/Creat Ratio 19.4 RATIO (10-20); Calcium,Total 10.4 mg/dL (8.5-10.1); Chloride 109 mmol/L (98-107); Cholesterol 143 mg/dL (200); Creatinine, Serum 1.24 mg/dL (0.70-1.30); EST Glomerular Filtration Rate 62 mL/min (>60); Est Glom Filt Rate - Afr Amer 75 mL/min (>60); Glucose 85 mg/dL (74-106); High Density Lipoprotein 46 mg/dL; PSA,Total - Annual Screen 1.06 ng/mL (0.00-4.00); Potassium 4.4 mmol/L (3.5-5.1); Sodium Level 143 mmol/L (136-145); Triglycerides 69 mg/dL; Very Low Density Lipoprotein 14 mg/dL (5-40)
== END | disposition home or self-care (01) ==
LOC: LAB 08:19
PROVIDERS: PCP Family Medicine; Referring Provider Family Medicine; Visit Provider Family Medicine
DX: Z00.00 Encounter for general adult medical examination without abnormal findings (principal)
CPT/HCPCS: 36415; 80048; 80061; 84153; 84403; G0103

== ENCOUNTER → 2023-08-21 | Outpatient (CLI) | payer SELFPAY ==
[2023-08-21 08:49] LABS: Absolute Neutrophil Count 4.2 X10^3/uL (2.0-7.7); Basophil# 0.06 X10^3/uL; Basophil% 0.8 % (0-1); Eosinophil# 0.24 X10^3/uL; Eosinophils% 3.2 % (0-5); Hemoglobin 13.3 g/dL (13.0-16.5); Lymphocyte % 25.6 % (19-41); Mean Corp Hgb Conc 34.1 g/dL (32-36); Mean Corpuscular Hgb 33.3 pg (27.0-32.0); Mean Corpuscular Volume 97.5 fL (80-94); Mean Platelet Vol. 9.2 fl (6.2-12.0); Monocyte# 0.99 X10^3/uL; Monocyte% 13.3 % (0-10); NRBC Flagged by Analyzer 0 % (0-5); Neutrophil # 4.21 X10^3/uL (2.7-7.7); Neutrophil % 56.7 % (47-70); Platelet Count 161 K/mm3 (150-450); RBC Distribution Width CV 12.5 % (11.6-14.6); RBC Distribution Width SD 44.1 fl (35.1-43.9); White Blood Count 7.4 K/mm3 (4.4-11.0)
[2023-08-21 10:03] LABS: ALB/GLOB Ratio 1.2 RATIO (0.9-2.4); AST(SGOT) 24 U/L (15-37); Alanine Aminotransfer ALT/SGPT 43 U/L (16-61); Albumin, Serum 3.9 g/dL (3.2-5.0); Alkaline Phosphatase 81 U/L (45-117); Anion Gap 3 (5-15); BUN 24 mg/dL (7-18); BUN/Creat Ratio 17.5 RATIO (10-20); Calcium,Total 10.3 mg/dL (8.5-10.1); Chloride 112 mmol/L (98-107); Cholesterol 148 mg/dL (200); Creatinine, Serum 1.37 mg/dL (0.70-1.30); EST Glomerular Filtration Rate 55 mL/min (>60); Est Glom Filt Rate - Afr Amer 66 mL/min (>60); Globulin 3.3 g/dL (2.2-4.2); Glucose 83 mg/dL (74-106); High Density Lipoprotein 48 mg/dL; Protein, Total 7.2 g/dL (6.4-8.2); Sodium Level 141 mmol/L (136-145); Thyroid Stim Hormone (TSH) 2.06 uIU/mL (0.358-3.74); Triglycerides 80 mg/dL; Very Low Density Lipoprotein 16 mg/dL (5-40)
== END | disposition home or self-care (01) ==
LOC: LAB 07:43
PROVIDERS: PCP Family Medicine; Referring Provider Internal Medicine Cardiovascular Disease; Visit Provider Internal Medicine Cardiovascular Disease
DX: E78.2 Mixed hyperlipidemia (principal); I42.8 Other cardiomyopathies
CPT/HCPCS: 36415; 80053; 80061; 84443; 85025